=== PATIENT | female | born 1960 | race Caucasian/White ===

== ENCOUNTER 2017-05-03 10:01 | Emergency (ER) | payer SELFPAY ==
[~2017-05-03] VITALS: Ht 162.6 cm; Wt 62.0 kg
[~2017-05-03 10:01] MED LIST: CLON.1 PO; LISI-586 PO
[2017-05-03] MEDS ORDERED: GADODIAMIDE PF 287 MG/ML 10 ML VIAL (for RAD MRI) IVCONTRAST ONE (10:02)
[2017-05-03 10:03] VITALS: BP 172/103; PULSE 87; RESP 14; TEMP 98.2; O2SAT 96
--- NOTE | 2017-05-03 11:06 | PD ---
HPI Chief Complaint: Eye Problems/Injury Time Seen by Provider: 11:05 Travel History International Travel<30 days: No Contact w/Intl Traveler<30days: No Traveled to known affect area: No History of Present Illness HPI 56-year-old female presents the emergency department with visual changes in the left eye for the past 5 days. Patient states no pain but tearing and at the beginning of feeling of something in her left eye 5 days ago. Patient describes a decrease in her visual field in the left, like looking in a tunnel. Patient has no headache or other neurological symptoms. Patient is a smoker long-term duration. 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 She does not wear contacts or glasses. Vision is noted to be 20/20 in the right , and 20/40 in the left. Patient states it's not worse but has not improved in the last 5 days. Patient is allergic to all NSAIDs as well as oxaprozin and penicillin. PFSH Past Medical History Cardiovascular Problems: Yes (htn) Hypertension: Yes Seizures: Yes (STATES FROM ANTI-INFLAMMATORY MEDS) ?: Not Social History Alcohol Use: Yes (4-5 day) Tobacco Use: Yes (1 PACK A DAY FOR 30= YEARS) Substance Use: Yes (pot) Allergies-Medications (Allergen,Severity, Reaction): Coded Allergies: diclofenac (Unverified Allergy, Severe, SEIZURES, 05/03/17) etodolac (Unverified Allergy, Severe, SEIZURES, 05/03/17) flurbiprofen (Unverified Allergy, Severe, SEIZURES, 05/03/17) ibuprofen (Unverified Allergy, Severe, SEIZURES, 05/03/17) indomethacin (Unverified Allergy, Severe, SEIZURES, 05/03/17) ketoprofen (Unverified Allergy, Severe, SEIZURES, 05/03/17) ketorolac (Unverified Allergy, Severe, SEIZURES, 05/03/17) naproxen (Unverified Allergy, Severe, SEIZURES, 05/03/17) oxaprozin (Unverified Allergy, Severe, SEIZURES, 05/03/17) penicillin G (Unverified Allergy, Severe, RASH, 05/03/17) Reported Meds & Prescriptions Reported Meds & Active Scripts Active Reported Catapres (Clonidine HCl) 0.1 Mg Tab 0.1 Mg PO DAILY Zestoretic 20/12.5 (HCTZ/Lisinopril) 20 Mg/12.5 Mg Tab 1 Tab PO DAILY Review of Systems General / Constitutional: No: Fever Eyes: Positive: Blurred Vision, Foreign Body Sensation (see history present illness.), Tearing, Visual changes, No: Diploplia, Photophobia, Redness, Pain, Blind Spots, Blindness HENT: No: Headaches, Vertigo, Lightheadedness, Sore Throat, Rhinitis, Rhinorrhea, Congestion, Neck Stiffness, Neck Pain, Dental Difficulties, Earache Cardiovascular: No: Chest Pain or Discomfort Respiratory: No: Shortness of Breath Gastrointestinal: No: Abdominal Pain Genitourinary: No: Dysuria Musculoskeletal: No: Pain Skin: No Rash Neurologic: No: Weakness Psychiatric: No: Depression Endocrine: No: Polydipsia Hematologic/Lymphatic: No: Easy Bruising Physical Exam Narrative GENERAL: Patient appears in no acute distress. SKIN: Warm and dry. HEAD: Atraumatic. Normocephalic. EYES: Pupils equal and round. No scleral icterus. No injection or drainage. Ophthalmoscopic exam shows normal-appearing retina bilaterally without obvious AV nicking or retinal tear. Optic disc are clear bilaterally. Optic field on the left seems somewhat diminished in the left lower quadrant compared to the right by confrontation. Intraocular pressure is measured at 26 in the right eye , and 15 in the left eye. ENT: No nasal bleeding or discharge. Mucous membranes pink and moist. Pharynx is clear. Airway is patent. NECK: Trachea midline. No JVD. Supple and nontender. No bruits. CARDIOVASCULAR: Regular rate and rhythm. No murmurs gallops or rubs appreciated. RESPIRATORY: No accessory muscle use. Clear to auscultation. Breath sounds equal bilaterally. MUSCULOSKELETAL: Extremities without clubbing, cyanosis, or edema. No obvious deformities. NEUROLOGICAL: Awake and alert. No obvious cranial nerve deficits. Motor grossly within normal limits. Five out of 5 muscle strength in the arms and legs. Normal speech. PSYCHIATRIC: Appropriate mood and affect; insight and judgment normal. Data Data Last Documented VS Vital Signs Date Time Temp Pulse Resp B/P (MAP) Pulse Ox O2 Delivery O2 Flow Rate FiO2 05/03/17 14:36 78 20 172/88 (116) 98 Room Air 05/03/17 10:03 98.2 Orders Orders Tetracaine 0.5% Opth Soln (Tetracaine 0. (05/03/17 11:15) Mri Brain W&W/O Contrast (05/03/17 11:14) Basic Metabolic Panel (Bmp) (05/03/17 11:14) Complete Blood Count With Diff (05/03/17 11:14) Iv Access Insert/Monitor (05/03/17 11:14) Sodium Chloride 0.9% Flush (Ns Flush) (05/03/17 11:15) Lorazepam Inj (Ativan Inj) (05/03/17 12:15) Gadodiamide Pf Inj (Omniscan Pf Inj) (05/03/17 10:02) Labs Laboratory Tests Test 05/03/17 12:00 05/03/17 13:15 White Blood Count 6.3 TH/MM3 Red Blood Count 4.56 MIL/MM3 Hemoglobin 16.1 GM/DL Hematocrit 47.8 % Mean Corpuscular Volume 104.7 FL Mean Corpuscular Hemoglobin 35.4 PG Mean Corpuscular Hemoglobin Concent 33.8 % Red Cell Distribution Width 13.9 % Platelet Count 215 TH/MM3 Mean Platelet Volume 8.0 FL Neutrophils (%) (Auto) 52.9 % Lymphocytes (%) (Auto) 34.9 % Monocytes (%) (Auto) 7.4 % Eosinophils (%) (Auto) 3.3 % Basophils (%) (Auto) 1.5 % Neutrophils # (Auto) 3.3 TH/MM3 Lymphocytes # (Auto) 2.2 TH/MM3 Monocytes # (Auto) 0.5 TH/MM3 Eosinophils # (Auto) 0.2 TH/MM3 Basophils # (Auto) 0.1 TH/MM3 CBC Comment DIFF FINAL Differential Comment Blood Urea Nitrogen 8 MG/DL Creatinine 0.46 MG/DL Random Glucose 92 MG/DL Calcium Level 9.0 MG/DL Sodium Level 140 MEQ/L Potassium Level 3.8 MEQ/L Chloride Level 102 MEQ/L Carbon Dioxide Level 25.7 MEQ/L Anion Gap 12 MEQ/L Estimat Glomerular Filtration Rate 142 ML/MIN [facility] Medical Decision Making Medical Screen Exam Complete: Yes Emergency Medical Condition: Yes Differential Diagnosis Glaucoma. Retinal tear. TIA. Tumor. Narrative Course Patient discussed with Dr. Guevara. CBC and BMP are ordered. IV access is obtained and MRI with and without contrast is ordered of the brain. Labs are within normal limits. Intraocular pressure is normal with 26 in the right and 15 on the left. MRI shows no acute process per radiologist. Patient is felt stable for discharge with follow with account resolution analyst in the next several days. Patient can return to emergency Department with worsening symptoms as needed. Diagnosis Primary Impression: Subjective visual disturbance, left eye Referrals: Cigarette Tester Patient Instructions: General Instructions Additional Instructions: Labs are within normal limits. Intraocular pressure is normal with 26 in the right and 15 on the left. MRI shows no acute process per radiologist. Patient is felt stable for discharge with follow with account resolution analyst in the next several days. Patient can return to emergency Department with worsening symptoms as needed. Med/Other Pt SpecificInfo: No Meds Exist/No RX given Disposition: 01 DISCHARGE HOME Condition: Stable William San May 03, 2017 11:06
[2017-05-03] MEDS ORDERED: SODIUM CHLORIDE 0.9% FLUSH 10 ML FLUSH IV FLUSH PRN (11:15)
[2017-05-03] MEDS ORDERED: TETRACAINE 0.5% OPTH SOLN 4 ML BTL LEFT EYE ONE (11:15)
[2017-05-03 12:15] LABS: AUTOMATED NEUTROPHIL # 3.3 TH/MM3 (1.8-7.7); BASOPHIL # 0.1 TH/MM3 (0-0.2); BASOPHIL % 1.5 % (0.0-2.0); EOSINOPHIL # 0.2 TH/MM3 (0-0.4); EOSINOPHIL % 3.3 % (0.0-4.0); HEMATOCRIT 47.8 % (35.0-46.0); HEMO FLAGS DIFF FINAL; LYMPH % 34.9 % (9.0-44.0); LYMPHOCYTE # 2.2 TH/MM3 (1.0-4.8); MEAN CELL VOLUME 104.7 FL (80.0-100.0); MEAN CORPUSCULAR HEMOGLOBIN 35.4 PG (27.0-34.0); MEAN CORPUSCULAR HGB CONC 33.8 % (32.0-36.0); MONO % 7.4 % (0.0-8.0); NEUT % 52.9 % (16.0-70.0); PLATELET COUNT 215 TH/MM3 (150-450); RED BLOOD COUNT 4.56 MIL/MM3 (4.00-5.30); RED CELL DISTRIBUTION WIDTH 13.9 % (11.6-17.2); WHITE BLOOD COUNT 6.3 TH/MM3 (4.0-11.0)
[2017-05-03] MEDS ORDERED: LORazepam 2 MG/ML VIAL IV PUSH ONE (12:15)
--- NOTE | 2017-05-03 12:15 | PD ---
Physical Exam Date Seen by Provider: May 03, 2017 Time Seen by Provider: 11:40 Narrative This patient presents complaining with blurred vision in the left eye for 5 days. Data Data Last Documented VS Vital Signs Date Time Temp Pulse Resp B/P (MAP) Pulse Ox O2 Delivery O2 Flow Rate FiO2 05/03/17 10:03 98.2 87 14 172/103 (126) 96 Orders Orders Tetracaine 0.5% Opth Soln (Tetracaine 0. (05/03/17 11:15) Mri Brain W&W/O Contrast (05/03/17 11:14) Basic Metabolic Panel (Bmp) (05/03/17 11:14) Complete Blood Count With Diff (05/03/17 11:14) Iv Access Insert/Monitor (05/03/17 11:14) Sodium Chloride 0.9% Flush (Ns Flush) (05/03/17 11:15) Lorazepam Inj (Ativan Inj) (05/03/17 12:15) Labs Laboratory Tests Test 05/03/17 12:00 [facility] Supervised Visit with KRYSTYNA: Yes Narrative Course I, Dr. Guevara, have reviewed the advance practice practitioner's documentation and am in agreement, met with the patient face to face, made the diagnosis, and the medical decision making was done by me. *My assessment and Findings: Patient is awake and alert. Her extraocular movements are intact. Her pupils are equal. As no focal neurological deficits. Please see Mir San PA-C's note for results of laboratory and radiographic evaluation, ED course, final diagnosis and disposition Condition: Stable Gina Guevara MD May 03, 2017 12:15
[2017-05-03 12:20] VITALS: BP 178/96; PULSE 72; RESP 18; O2SAT 97
[2017-05-03 14:01] LABS: BICARBONATE 25.7 MEQ/L (21.0-32.0); POTASSIUM 3.8 MEQ/L (3.5-5.1)
[2017-05-03 14:36] VITALS: BP 172/88; PULSE 78; RESP 20; O2SAT 98
--- NOTE | 2017-05-03 15:41 | RADRPT ---
EXAM DATE/TIME: 05/03/2017 14:50 [facility] COMPARISON: No previous studies available for comparison. INDICATIONS : Mass. Blurred vision left eye. CONTRAST: 10 cc Omniscan (gadodiamide) IV MEDICAL HISTORY : Hypertension. SURGICAL HISTORY : None. ENCOUNTER: Initial ACUITY: 1 day PAIN SCORE: 0/10 LOCATION: cranial TECHNIQUE: Multiplanar, multisequence MRI of the brain was performed both prior to and following the administrat ion of paramagnetic contrast. FINDINGS: CEREBRUM: The ventricles are normal for age. No evidence of midline shift, mass lesion, hemorrhage or acute in farction. No extraaxial fluid collections are seen. The pituitary gland and suprasellar cistern are normal in configuration. WHITE MATTER: No significant signal abnormalities are seen in the white matter. POSTERIOR FOSSA: The cerebellum and brainstem are intact. The 4th ventricle is midline. The cerebellopontine angle is unremarkable. The cerebellar tonsils are normal in position. DIFFUSION IMAGING: No focal areas of restricted diffusion are seen. No evidence of acute infarction. EXTRACRANIAL: The visualized portions of the orbits and paranasal sinuses are unremarkable. POST-CONTRAST: No abnormal areas of parenchymal or dural enhancement. No evidence of blood-brain barrier breakdown. CONCLUSION: 1. No acute intracranial abnormalities. No recent infarction or mass. No abnormal enhancing lesions. Left ethmoid sinus disease. Sung Bar MD on May 03, 2017 at 15:32 Board Certified Radiologist. This report was verified electronically.
[2017-05-03 15:56] VITALS: BP 174/79
== END 2017-05-03 16:02 | disposition home or self-care (01) ==
LOC: NEPC 10:01
DX: H53.10 Unspecified subjective visual disturbances (principal)
CPT/HCPCS: 70553; 80048; 85025; 96374; 99285; A9579; J2060